=== PATIENT | female | born 1970 | race Caucasian/White ===

== ENCOUNTER 2020-02-21 06:17 | Day surgery (SDC) | payer OTHER, SELFPAY ==
[~2020-02-21] VITALS: Ht 157.5 cm; Wt 59.4 kg
[2020-02-21] MEDS ORDERED: MIDAZOLAM 5 MG/5 ML VIAL ONE (08:42)
[2020-02-21] MEDS ORDERED: fentaNYL citrate 0.05 MG/ML VIAL ONE (08:42)
[2020-02-21] MEDS ORDERED: LIDOCAINE 2% 100 MG/5 ML UJET TP ONE (08:43)
[2020-02-21] MEDS ORDERED: diphenhydrAMINE 50 MG/ML VIAL ONE (08:43)
[2020-02-21] MEDS ORDERED: fentaNYL citrate 0.05 MG/ML VIAL IVP ONE (09:45)
[2020-02-21] MEDS ORDERED: MIDAZOLAM 2 MG/2 ML VIAL IVP ONE (09:45)
== END 2020-02-21 10:20 | disposition home or self-care (01) ==
LOC: MDS 06:17 → MMU 06:50 → MDS 10:20
PROVIDERS: ATTEND Internal Medicine Gastroenterology
DX: R19.5 Other fecal abnormalities (principal); K59.00 Constipation, unspecified; Z79.899 Other long term (current) drug therapy; Z20.828 Contact with and (suspected) exposure to other viral communicable diseases
CPT/HCPCS: 45378; 81025; J2250; J3010; U0003; J1200